=== PATIENT | female | born 1995 | race Caucasian/White ===

== ENCOUNTER 2017-07-02 14:24 | Emergency (ER) | payer OTHER ==
[2017-07-02 15:04] VITALS: BP 120/77
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
== END 2017-07-02 16:41 | disposition home or self-care (01) ==
LOC: ED 14:24
DX: Z04.1 Encounter for examination and observation following transport accident (principal); V89.2XXA Person injured in unspecified motor-vehicle accident, traffic, initial encounter; Y93.89 Activity, other specified; Y99.9 Unspecified external cause status; Y92.410 Unspecified street and highway as the place of occurrence of the external cause
CPT/HCPCS: 99282

== ENCOUNTER 2019-08-16 20:28 | Emergency (ER) | payer SELFPAY ==
[2019-08-16 20:34] VITALS: BP 120/83
--- NOTE | 2019-08-16 20:52 | Event Note ---
ED Screening Note Date of service: 08/16/19 Time: 20:43 ED Screening Note: This initial assessment/diagnostic orders/clinical plan/treatment(s) is/are subject to change based on patients health status, clinical progression and re- assessment by fellow clinical providers in the ED. Further treatment and workup at subsequent clinical providers discretion. Patient/guardian urged not to elope from the ED as their condition may be serious if not clinically assessed and managed. Initial orders include:
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
== END 2019-08-16 21:25 | disposition home or self-care (01) ==
LOC: ED 20:28
DX: M54.6 Pain in thoracic spine (principal); G89.29 Other chronic pain
CPT/HCPCS: 99281